=== PATIENT | male | born 1960 | race African-American/Black ===

== ENCOUNTER 2025-02-03 09:16 | Outpatient (CLI) | payer BC, SELFPAY | END 2025-02-03 09:17 | disposition home or self-care (01) | LOC: WOUND 09:17 | PROVIDERS: PCP Family Medicine; Referring Provider Student in an Organized Health Care Education/Training Program; Visit Provider Nurse Practitioner Family | DX: I87.2 Venous insufficiency (chronic) (peripheral) (principal); I10 Essential (primary) hypertension; L97.812 Non-pressure chronic ulcer of other part of right lower leg with fat layer exposed; F17.200 Nicotine dependence, unspecified, uncomplicated | CPT/HCPCS: 11042; G0463 ==

== ENCOUNTER 2025-02-10 09:15 | Outpatient (CLI) | payer BC, SELFPAY | END 2025-02-10 09:16 | disposition home or self-care (01) | LOC: WOUND 09:15 | PROVIDERS: PCP Family Medicine; Visit Provider Nurse Practitioner Family | DX: I87.2 Venous insufficiency (chronic) (peripheral) (principal); L97.812 Non-pressure chronic ulcer of other part of right lower leg with fat layer exposed; F17.200 Nicotine dependence, unspecified, uncomplicated | CPT/HCPCS: 11042 ==

== ENCOUNTER 2025-02-17 09:30 | Outpatient (CLI) | payer BC, SELFPAY | END 2025-02-17 09:31 | disposition home or self-care (01) | LOC: WOUND 09:30 | PROVIDERS: PCP Family Medicine; Visit Provider Nurse Practitioner Family | DX: I87.2 Venous insufficiency (chronic) (peripheral) (principal); I10 Essential (primary) hypertension; L97.812 Non-pressure chronic ulcer of other part of right lower leg with fat layer exposed; F17.200 Nicotine dependence, unspecified, uncomplicated | CPT/HCPCS: 97597 ==

== ENCOUNTER 2025-03-03 09:20 | Outpatient (CLI) | payer BC, SELFPAY | END 2025-03-03 09:21 | disposition home or self-care (01) | LOC: WOUND 09:20 | PROVIDERS: PCP Family Medicine; Visit Provider Nurse Practitioner Family | DX: I87.2 Venous insufficiency (chronic) (peripheral) (principal); I10 Essential (primary) hypertension; F17.200 Nicotine dependence, unspecified, uncomplicated | CPT/HCPCS: G0463 ==